=== PATIENT | female | born 1970 | race African-American/Black ===

== ENCOUNTER 2023-06-30 00:43 | Observation (INO) | payer BC, SELFPAY ==
[2023-06-30 04:16] VITALS: BMI 39.6
[2023-06-30] MEDS ORDERED: Ondansetron PF 4 MG/2 ML Vial IVP PRN (04:20)
[2023-06-30] MEDS ORDERED: Morphine 4 MG/ML VIAL SLOW IVP PRN (04:20)
[2023-06-30] MEDS ORDERED: Morphine 2 MG/ML VIAL SLOW IVP PRN (04:27)
[2023-06-30] MEDS: Potassium Chloride 20 MEQ in Lactated Ringer's 1,000 ML IV SCH ×2 (04:45→12:49)
[2023-06-30 04:46] LABS: #Basophils 0.1 10x3/uL (0.0-0.2); #Eosinphils 0.2 10x3/uL (0.0-0.5); #Monocytes 0.6 10x3/uL (0.0-1.1); #Neutrophils 5.4 10x3/uL (1.5-8.4); %Basophils 0.6 % (0.0-2.0); %Eosinophils 1.9 % (0.0-6.0); %Lymphocytes 24.2 % (18.0-47.0); %Monocytes 6.7 % (0.0-10.0); %Neutrophils 66.2 % (40.0-75.0); Hematocrit 34.7 % (34.9-44.5); Hemoglobin 11.1 g/dL (12.0-15.5); Mean Corpuscular Hemoglobin 25.9 pg (27.0-33.0); Mean Corpuscular Volume 81.1 fl (81.6-98.3); Mean Platelet Volume 9.8 fl (7.4-10.4); Platelet Count 232 10x3/uL (150-450); RBC Distribution Width 14.1 % (11.5-14.5); Red Blood Cell (RBC) Count 4.28 10x6/uL (3.90-5.03); White Blood Cell (WBC) Count 8.2 10x3/uL (3.5-10.5)
[2023-06-30 05:19] LABS: Anion Gap 14 mmol/L (10-20); BUN (Urea Nitrogen) 12 mg/dL (9.8-20.1); Calc. Creatinine Clearance 123 mL/min (70-130); Carbon Dioxide 20 mmol/L (22-29); Chloride 111 mmol/L (98-107); Potassium 4.4 mmol/L (3.5-5.1); Sodium 141 mmol/L (136-145)
[2023-06-30 05:20] LABS: ALT (SGPT) 137 U/L (8-55); AST (SGOT) 133 U/L (5-34); Albumin 3.6 g/dL (3.5-5.0); Alkaline Phosphatase 99 U/L (40-110); Bilirubin, Total 0.5 mg/dL (0.2-1.2); Calcium 8.4 mg/dL (7.8-10.44); Cholesterol 140 mg/dl (< 200 Desired); Estimated GFR 76; Globulin 2.9 g/dL (2.4-3.5); Glucose 95 mg/dL (70-105); HDL Cholesterol 35 mg/dL (>60 Neg Risk); LDL Cholesterol, Calculated 92 mg/dL; Magnesium 1.8 mg/dL (1.6-2.6); Protein, Total 6.5 g/dL (6.0-8.3); Triglycerides 65 mg/dL (Less than 150)
[2023-06-30] MEDS ORDERED: FLU VACC QS2023-24(6MOS UP)/PF 60 MCG/0.5 ML SYRINGE IM ONE (06:45)
[2023-06-30] MEDS ORDERED: cloNIDine 0.1 MG TAB PO SCH (13:00)
[2023-06-30] MEDS ORDERED: Amlodipine 5 MG TAB PO SCH (17:00)
[2023-06-30 20:07] VITALS: BP 140/98; TEMP 97.5
== END 2023-06-30 18:40 | disposition home or self-care (01) ==
LOC: CSHTELE 03:26 → INTOOBSV 03:26
PROVIDERS: ADMIT Family Medicine; ATTEND Internal Medicine
DX: K85.90 Acute pancreatitis without necrosis or infection, unspecified (principal); R74.01 Elevation of levels of liver transaminase levels; I10 Essential (primary) hypertension; E66.9 Obesity, unspecified; Z68.39 Body mass index [BMI] 39.0-39.9, adult; Z90.710 Acquired absence of both cervix and uterus; Z90.49 Acquired absence of other specified parts of digestive tract; Z87.891 Personal history of nicotine dependence
CPT/HCPCS: 36416; 80053; 80061; 83690; 83735; 85025; G0378; J1650; J2270; J3480; J7120

== ENCOUNTER → 2024-10-15 | Day surgery (SDC) | payer OTHER ==
[~2024-10-15] MED LIST: Gadobenate Dimeglumine 2 ML, Sodium Chloride 0.9% 250 ML 10 ML, Iopamidol 8 ML, Lidocai... FS ONE; Magnevist 469MG/ML 20 ML VIAL ONE
== END ==
LOC: CSHRAD 08:44
PROVIDERS: ATTEND Family Medicine
PROC: BP08YZZ Plain Radiography of Right Shoulder using Other Contrast (ICD-10-PCS; principal; 2024-10-15)
DX: M25.511 Pain in right shoulder (principal)
CPT/HCPCS: 23350; 77002; A9577; J0171; J7050; Q9967